=== PATIENT | male | born 1955 | race African-American/Black ===

== ENCOUNTER → 2018-10-19 | Outpatient (CLI) | payer MEDICAID, MEDICARE ==
[2018-10-19 11:04] LABS: Basophils # (auto) 0 uL; Eosinophils # (auto) 0.2 uL; Hemoglobin 14.6 g/dL (13.5-17.5); Mean Corpuscular Hgb Conc. 34.3 g/dL (32.0-36.0); Monocytes # (auto) 0.5 uL; Neutrophils # (auto) 1.8 uL; White Blood Cell 3.5 10^3/uL (4.4-10.8)
[2018-10-19 11:05] LABS: Basophils % (auto) 1.3 % (0.0-2.0); Eosinophils % (auto) 5.6 % (0.0-7.0); Hematocrit 42.5 % (41.0-53.0); Lymphocytes # (auto) 0.9 uL; Lymphocytes % (auto) 26.1 % (10.0-50.0); Mean Corpuscular Hemoglobin 37.1 pg (28.0-32.0); Mean Corpuscular Volume 108.1 fL (80.0-100.0); Platelet Count (auto) 73 10^3/uL (140-450); Red Blood Cells 3.93 10^6/uL (4.5-5.90); Red Cell Distribution Width 14.6 % (11.8-14.3)
[2018-10-19 12:50] LABS: Potassium 4.1 mmol/L (3.5-5.1)
[2018-10-19 13:09] LABS: Albumin 2.5 g/dL (3.4-5.0); BUN/Creatinine Ratio 16.4; Bilirubin, Total 2.6 mg/dL (0.2-1.0); Calcium 7.9 mg/dL (8.5-10.1); Total Protein 6.4 g/dL (6.4-8.2)
== END | disposition home or self-care (01) ==
LOC: LAB 10:28
PROVIDERS: ATTEND Internal Medicine
DX: Z12.5 Encounter for screening for malignant neoplasm of prostate (principal); Z12.11 Encounter for screening for malignant neoplasm of colon; B18.2 Chronic viral hepatitis C; I10 Essential (primary) hypertension; N40.0 Benign prostatic hyperplasia without lower urinary tract symptoms
CPT/HCPCS: 36415; 80053; 80061; 82306; 83036; 84153; 84443; 85025

== ENCOUNTER → 2019-06-22 | Outpatient (CLI) | payer OTHER, MEDICAID ==
[2019-06-22 11:41] LABS: Basophils # (auto) 0 uL; Basophils % (auto) 0.9 % (0.0-2.0); Eosinophils # (auto) 0.1 uL; Eosinophils % (auto) 4.1 % (0.0-7.0); Hematocrit 42.9 % (41.0-53.0); Hemoglobin 14.9 g/dL (13.5-17.5); Lymphocytes # (auto) 0.7 uL; Lymphocytes % (auto) 21.2 % (10.0-50.0); Mean Corpuscular Hemoglobin 37.9 pg (28.0-32.0); Mean Corpuscular Hgb Conc. 34.6 g/dL (32.0-36.0); Mean Corpuscular Volume 109.5 fL (80.0-100.0); Monocytes # (auto) 0.4 uL; Monocytes % (auto) 12.4 % (0.0-12.0); Neutrophils # (auto) 2.1 uL; Neutrophils % (auto) 61.4 % (37.0-80.0); Platelet Count (auto) 72 10^3/uL (140-450); Red Blood Cells 3.92 10^6/uL (4.5-5.90); Red Cell Distribution Width 14.6 % (11.8-14.3); White Blood Cell 3.4 10^3/uL (4.4-10.8)
[2019-06-22 11:48] LABS: Urine Bacteria NONE SEEN /hpf (None Seen); Urine Blood Negative /uL (Negative); Urine Mucus FEW (None Seen); Urine Specific Gravity 1.027 (1.001-1.035); Urine Sperm PRESENT /hpf (None Seen); Urine WBC 8 /hpf (0 - 3)
[2019-06-22 12:31] LABS: Albumin 2.5 g/dL (3.4-5.0); Calcium 8.1 mg/dL (8.5-10.1); Potassium 3.8 mmol/L (3.5-5.1)
[2019-06-22 12:33] LABS: BUN/Creatinine Ratio 16.9; Bilirubin, Total 3.1 mg/dL (0.2-1.0); Total Protein 6.6 g/dL (6.4-8.2)
== END | disposition home or self-care (01) ==
LOC: LAB 11:07
PROVIDERS: ATTEND Internal Medicine
DX: I10 Essential (primary) hypertension (principal); N40.0 Benign prostatic hyperplasia without lower urinary tract symptoms; R60.9 Edema, unspecified
CPT/HCPCS: 36415; 80053; 81001; 83880; 85025

== ENCOUNTER → 2019-08-25 | Outpatient (CLI) | payer OTHER, MEDICAID ==
[2019-08-25 08:40] LABS: Eosinophils # (auto) 0.2 10 ^3/uL (0-0.8); Monocytes # (auto) 0.4 10 ^3/uL (0-1.3); Red Cell Distribution Width 14.8 % (11.8-14.3)
[2019-08-25 08:42] LABS: Basophils # (auto) 0.1 10 ^3/uL (0-0.2); Basophils % (auto) 1.9 % (0.0-2.0); Hemoglobin 14.8 g/dL (13.5-17.5); Lymphocytes # (auto) 0.8 10 ^3/uL (0.4-5.4); Lymphocytes % (auto) 24.4 % (10.0-50.0); Mean Corpuscular Hemoglobin 38.2 pg (28.0-32.0); Mean Corpuscular Hgb Conc. 34.4 g/dL (32.0-36.0); Mean Corpuscular Volume 110.9 fL (80.0-100.0); Monocytes % (auto) 12.1 % (0.0-12.0); Neutrophils # (auto) 1.9 10 ^3/uL (1.6-8.6); Neutrophils % (auto) 56.6 % (37.0-80.0); Platelet Count (auto) 68 10^3/uL (140-450); Red Blood Cells 3.88 10^6/uL (4.5-5.90); White Blood Cell 3.4 10^3/uL (4.4-10.8)
[2019-08-25 08:55] LABS: INR 1.56 (0.9-1.15); Partial Thromboplastin Time 33.4 sec (23.64-32.05)
[2019-08-25 08:59] LABS: Albumin 2.6 g/dL (3.4-5.0); BUN/Creatinine Ratio 16.7; Calcium 7.9 mg/dL (8.5-10.1); Potassium 3.8 mmol/L (3.5-5.1)
[2019-08-25 09:01] LABS: Bilirubin, Total 2.9 mg/dL (0.2-1.0); Total Protein 7.1 g/dL (6.4-8.2)
== END | disposition home or self-care (01) ==
LOC: LAB 08:18
PROVIDERS: ATTEND Internal Medicine Gastroenterology
DX: K74.60 Unspecified cirrhosis of liver (principal); B18.2 Chronic viral hepatitis C
CPT/HCPCS: 36415; 80053; 82105; 82140; 85025; 85610; 85730; 87340; 87522; 87902

== ENCOUNTER → 2019-10-21 | Outpatient (CLI) | payer OTHER, MEDICAID ==
[2019-10-21 11:26] LABS: Eosinophils # (auto) 0.2 10 ^3/uL (0-0.8); Monocytes # (auto) 0.6 10 ^3/uL (0-1.3); Platelet Count (auto) 76 10^3/uL (140-450)
[2019-10-21 11:29] LABS: Basophils # (auto) 0 10 ^3/uL (0-0.2); Eosinophils % (auto) 5.5 % (0.0-7.0); Hemoglobin 14.7 g/dL (13.5-17.5); Lymphocytes # (auto) 1.1 10 ^3/uL (0.4-5.4); Lymphocytes % (auto) 27.8 % (10.0-50.0); Mean Corpuscular Hemoglobin 37.5 pg (28.0-32.0); Mean Corpuscular Hgb Conc. 34.1 g/dL (32.0-36.0); Monocytes % (auto) 15.7 % (0.0-12.0); Red Blood Cells 3.91 10^6/uL (4.5-5.90); Red Cell Distribution Width 13.5 % (11.8-14.3)
[2019-10-21 11:43] LABS: INR 1.45 (0.9-1.15)
[2019-10-21 12:12] LABS: Albumin 2.7 g/dL (3.4-5.0); Calcium 8.2 mg/dL (8.5-10.1)
[2019-10-21 12:16] LABS: BUN/Creatinine Ratio 20.9; Bilirubin, Total 1.6 mg/dL (0.2-1.0); Total Protein 7.2 g/dL (6.4-8.2)
== END | disposition home or self-care (01) ==
LOC: LAB 11:07
PROVIDERS: ATTEND Internal Medicine Gastroenterology
DX: B18.2 Chronic viral hepatitis C (principal)
CPT/HCPCS: 36415; 80053; 82150; 85025; 85610

== ENCOUNTER 2019-11-08 09:32 | Emergency (ER) | payer OTHER, MEDICAID ==
[~2019-11-08] VITALS: Ht 167.6 cm; Wt 113.4 kg
[2019-11-08 10:41] VITALS: BP 143/74
[2019-11-08] MEDS ORDERED: traMADol HCL 50 MG TAB PO ONE (11:00)
== END 2019-11-08 10:51 | disposition home or self-care (01) ==
LOC: ER 09:32
DX: S46.911A Strain of unspecified muscle, fascia and tendon at shoulder and upper arm level, right arm, initial encounter (principal); I10 Essential (primary) hypertension; W18.39XA Other fall on same level, initial encounter; Y93.89 Activity, other specified; Y92.89 Other specified places as the place of occurrence of the external cause; Y99.8 Other external cause status
CPT/HCPCS: 73030